=== PATIENT | female | born 1935 | race Caucasian/White ===

== ENCOUNTER 2023-07-27 15:32 | Inpatient (IN) | payer MEDICAID ==
[~2023-07-27] VITALS: Ht 154.9 cm; Wt 52.6 kg
[~2023-07-27 15:32] MED LIST: ACET250T9 PO; APIX2.5T PO; ATOR80TA PO; BRIM5DRO3 LEFTEYE; CYCL2DRO5 LEFTEYE; DORZ1DRO7 LEFTEYE; LATA7.5D LEFTEYE; LEVO25TA9 PO; METO25TA6 PO; NITR100C PO; PRED5DRO24 LEFTEYE
[2023-07-27] MEDS ORDERED: NITR100C PO (17:55)
[2023-07-27 22:44] VITALS: BP 142/71; TEMP 97.9; O2SAT 99
[2023-07-27] MEDS ORDERED: MORPHINE SULFATE INJ 2 MG/ML DISP.SYRIN IV PRN (23:00)
[2023-07-27] MEDS ORDERED: ONDANSETRON HCL/PF 4 MG/2 ML VIAL IVP PRN (23:00)
[2023-07-27] MEDS ORDERED: CEFTRIAXONE 1 G in IV D5W 50 ML IV SCH (23:00)
[2023-07-27] MEDS ORDERED: MAGNESIUM HYDROXIDE 30 ML UDC PO PRN (23:00)
[2023-07-27] MEDS ORDERED: ACETAMINOPHEN 325 MG TABLET PO PRN (23:00)
[2023-07-27] MEDS ORDERED: Z GUARD REMEDY 4 OZ OINT TP PRN (23:00)
[2023-07-27] MEDS ORDERED: CEFTRIAXONE 1GM BAG (ER ONLY) 50 ML IV ONE (23:16)
[2023-07-27] MEDS: BRIMONIDINE TARTRATE OPHT SOLN 5 ML BOTTLE LEFTEYE SCH (23:30)
[2023-07-28] MEDS: prednisoLONE ACETATE 1% SUSP 5 ML BOTTLE LEFTEYE SCH ×6 (01:00→21:56)
[2023-07-28 04:00] VITALS: BP 142/71; TEMP 97.9; O2SAT 98
[2023-07-28] MEDS: BRIMONIDINE TARTRATE OPHT SOLN 5 ML BOTTLE LEFTEYE SCH ×3 (04:21→21:56)
[2023-07-28 07:29] LABS: BASOPHILS % (AUTO) 0.7 % (0.0-2.0); EOSINOPHILS % (AUTO) 0.4 % (0.0-6.0); HEMATOCRIT 33 % (33-45); HEMOGLOBIN 11.2 g/dL (11.5-14.8); LYMPHOCYTES # (AUTO) 1.1 K/uL (0.8-4.8); LYMPHOCYTES % (AUTO) 21.2 % (20.0-44.0); MEAN CORPUSCULAR HEMOGLOBIN 32 PG (26.0-33.0); MEAN CORPUSCULAR HGB CONC 34 g/dl (31.0-36.0); MEAN CORPUSCULAR VOLUME 96 fL (82-100); MONOCYTES # (AUTO) 0.7 K/uL (0.1-1.30); MONOCYTES % (AUTO) 13.9 % (2.0-12.0); NEUTROPHILS # (AUTO) 3.2 K/uL (1.8-8.9); NEUTROPHILS % (AUTO) 63.8 % (43.0-81.0); PLATELET COUNT (AUTO) 257 K/uL (150-450); RED CELL DISTRIBUTION WIDTH 14.1 % (11.5-15.0); WHITE BLOOD COUNT (AUTO) 5.1 K/uL (4.3-11.0)
[2023-07-28 07:54] LABS: ALBUMIN 2.8 g/dL (3.4-5.0); BILIRUBIN,TOTAL 0.4 mg/dL (0.2-1.0); CALCIUM, SERUM 8.6 mg/dL (8.5-10.1); CREATININE 0.9 mg/dL (0.6-1.3); PHOSPHORUS 3.1 mg/dL (2.5-4.9); POTASSIUM 3.1 mmol/L (3.5-5.1); TOTAL PROTEIN, SERUM 7.6 g/dL (6.4-8.2)
[2023-07-28 07:55] LABS: THYROID STIMULATING HORMONE 5.968 uIU/mL (0.358-3.74)
[2023-07-28 08:00] VITALS: BP 113/50; TEMP 97.7; O2SAT 99
[2023-07-28] MEDS: METOPROLOL TARTRATE 25 MG TABLET PO SCH ×2 (09:00→20:51)
[2023-07-28] MEDS: LEVOTHYROXINE SODIUM 25 MCG TABLET PO SCH (10:36)
[2023-07-28] MEDS: FUROSEMIDE 20 MG/2 ML VIAL IV SCH (10:36)
[2023-07-28] MEDS: PANTOPRAZOLE 40 MG TABLET.DR PO SCH (10:36)
[2023-07-28] MEDS: TIMOLOL MAL/DORZOLAM HCL OPHTH 10 ML BOTTLE LEFTEYE SCH ×2 (10:37→21:56)
[2023-07-28] MEDS: CYCLOPENTOLATE 1% OPHTHALMIC 2 ML BOTTLE LEFTEYE SCH ×3 (10:38→18:36)
[2023-07-28] MEDS: acetaZOLAMIDE 250 MG TABLET PO SCH ×2 (10:39→20:47)
[2023-07-28] MEDS: POTASSIUM CHLORIDE 20 MEQ TAB.PRT.SR PO SCH ×2 (10:39→11:30)
[2023-07-28] MEDS: DOCUSATE SODIUM 100 MG CAPSULE PO SCH ×2 (10:39→18:36)
[2023-07-28] MEDS: APIXABAN 2.5 MG TABLET PO SCH ×2 (10:40→20:47)
[2023-07-28 16:00] VITALS: BP 119/63; TEMP 97.9; O2SAT 99
[2023-07-28 20:00] VITALS: BP 131/75; TEMP 100.8; O2SAT 99
[2023-07-28] MEDS: MUPIROCIN OINT 2% 22 GM TUBE NS SCH (21:00)
[2023-07-28] MEDS ORDERED: LATANOPROST EYE DROP 0.005% 2.5 ML BOTTLE LEFTEYE SCH (22:00)
[2023-07-28] MEDS ORDERED: ATORVASTATIN 40 MG TABLET PO SCH (22:00)
[2023-07-28] MEDS ORDERED: CEFTRIAXONE 1 G in IV D5W 50 ML IV SCH (22:00)
[2023-07-29] MEDS: prednisoLONE ACETATE 1% SUSP 5 ML BOTTLE LEFTEYE SCH ×5 (01:22→16:11)
[2023-07-29 04:00] VITALS: BP 126/72; TEMP 99; O2SAT 97
[2023-07-29] MEDS: BRIMONIDINE TARTRATE OPHT SOLN 5 ML BOTTLE LEFTEYE SCH ×2 (05:02→12:17)
[2023-07-29 07:19] LABS: CALCIUM, SERUM 8.9 mg/dL (8.5-10.1); CREATININE 1.2 mg/dL (0.6-1.3); POTASSIUM 3.4 mmol/L (3.5-5.1)
[2023-07-29 08:00] VITALS: BP 133/66; TEMP 97.6; O2SAT 99
[2023-07-29] MEDS: PANTOPRAZOLE 40 MG TABLET.DR PO SCH (08:29)
[2023-07-29] MEDS: LEVOTHYROXINE SODIUM 25 MCG TABLET PO SCH (08:31)
[2023-07-29] MEDS ORDERED: ENSURE ENLIVE 237 ML LIQUID (VANILLA) PO SCH (09:00)
[2023-07-29] MEDS: DOCUSATE SODIUM 100 MG CAPSULE PO SCH ×2 (09:26→16:11)
[2023-07-29] MEDS: acetaZOLAMIDE 250 MG TABLET PO SCH (09:26)
[2023-07-29] MEDS: METOPROLOL TARTRATE 25 MG TABLET PO SCH (09:27)
[2023-07-29] MEDS: TIMOLOL MAL/DORZOLAM HCL OPHTH 10 ML BOTTLE LEFTEYE SCH (09:28)
[2023-07-29] MEDS: CYCLOPENTOLATE 1% OPHTHALMIC 2 ML BOTTLE LEFTEYE SCH ×3 (09:28→16:11)
[2023-07-29] MEDS: APIXABAN 2.5 MG TABLET PO SCH (09:28)
[2023-07-29] MEDS: MUPIROCIN OINT 2% 22 GM TUBE NS SCH (09:29)
[2023-07-29] MEDS: FUROSEMIDE 20 MG/2 ML VIAL IV SCH (09:32)
[2023-07-29] MEDS ORDERED: POTASSIUM CHLORIDE 20 MEQ TAB.PRT.SR PO SCH (10:00)
[2023-07-29 16:00] VITALS: BP 109/68; TEMP 98.8; O2SAT 99
== END 2023-07-29 18:26 | DRG 137 ==
LOC: ER 15:44 → MEDSG1 17:13
PROVIDERS: ADMIT Internal Medicine
DX: U07.1 COVID-19 (principal); J96.00 Acute respiratory failure, unspecified whether with hypoxia or hypercapnia; G93.49 Other encephalopathy; N17.9 Acute kidney failure, unspecified; D68.59 Other primary thrombophilia; I50.9 Heart failure, unspecified; I13.0 Hypertensive heart and chronic kidney disease with heart failure and stage 1 through stage 4 chronic kidney disease, or unspecified chronic kidney disease; I48.20 Chronic atrial fibrillation, unspecified; F01.50 Vascular dementia, unspecified severity, without behavioral disturbance, psychotic disturbance, mood disturbance, and anxiety; E78.5 Hyperlipidemia, unspecified; N39.0 Urinary tract infection, site not specified; Z79.01 Long term (current) use of anticoagulants; Z79.899 Other long term (current) drug therapy; E03.9 Hypothyroidism, unspecified; E87.6 Hypokalemia; Z74.09 Other reduced mobility; H54.62 Unqualified visual loss, left eye, normal vision right eye; N18.9 Chronic kidney disease, unspecified; Z78.9 Other specified health status; Z86.73 Personal history of transient ischemic attack (TIA), and cerebral infarction without residual deficits; M41.9 Scoliosis, unspecified; J84.9 Interstitial pulmonary disease, unspecified
CPT/HCPCS: 36415; 80048-TC; 80053-TC; 80061-TC; 82728-TC; 83540-TC; 83735-TC; 84100-TC; 84443-TC; 84484-TC; 85025-TC; 85378-TC; 93307-TC; 97110-TC; 97116-TC; 97530-TC; G0378; J0696; J1940; J7050; J7060